=== PATIENT | female | born 1980 | race Caucasian/White ===

== ENCOUNTER 2016-05-14 03:49 | Inpatient (IN) | payer OTHER ==
[2016-05-14] MEDS: DEXTROSE 5%-LACTATED RINGERS 1,000 ML IV SCH ×2 (04:30→08:38)
[2016-05-14 05:26] LABS: BASOPHIL 0.6 % (0-2.0); EOSINOPHIL 1.1 % (0-4.5); MCH 32.8 pg (25.7-33.7); MCHC 34.9 g/dl (32.0-36.0); MEAN CELL VOLUME 94.1 fl (80-96); MEAN PLT VOLUME 9.5 fl (7.5-11.1); NEUTROPHILS 64.9 % (42.8-82.8); PLATELET COUNT 207 K/MM3 (134-434); WHITE BLOOD COUNT 9.7 K/mm3 (4.0-10.0)
[2016-05-14 05:28] VITALS: BMI 29.2
[2016-05-14 05:42] LABS: ACTIVATED PTT 25.7 SECONDS (26.9-34.4)
[2016-05-14 05:44] LABS: CALCIUM 8.4 mg/dL (8.5-10.1); CREATININE 0.6 mg/dL (0.55-1.02)
--- NOTE | 2016-05-14 07:17 | HP ---
Admitting History and Physical - Admission Chief Complaint: Pt comes with labor pains since 4 am History of Present Illness: 40 y/o at 39+ weeks with above. in 2004..gbs neg, hiv neg, hep b neg , rubella immune, o pos. 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: Alzheimer's, CVA, Dementia, Migraine, Multiple Sclerosis, Peripheral Neuropathy, Parkinson's, Seizure, Syncope, TIA, Vertigo, Other Cardiovascular: No: AFIB, Aneurysm, Aortic Insufficiency, Aortic Stenosis, CAD, CHF, Deep Vein Thrombosis, HTN, Hyperlipdemia, OH, Mitral Insufficiency, Mitral Stenosis, Murmur, Pulmonary Hypertension, Other Pulmonary: No: Asthma, Bronchitis, Cancer, COPD, O2 Dependent, Pneumonia, Previously Intubated, Pulmonary Embolus, Pulmonary Fibrosis, Sleep Apnea, Other Gastrointestinal: No: Ascites, Cancer, Constipation, Crohn's Disease, Diverticulitis, Diverticulosis, Esophageal Varices, Gastritis, GERD, GI Bleed, Hemorrhoids, Hiatal Hernia, Inflamatory Bowel Disease, Irritable Bowel Disease, Pancreatitis, Peptic Ulcer Disease, Ulcerative Colitis, Other Hepatobiliary: No: Cirrhosis, Cholelithiasis, Cholecystitis, Choledocholithiasis , Hepatitis A, Hepatitis B, Hepatitis C, Other Renal/: No: Renal Failure, Renal Inusuff, BPH, Cancer, Hematuria, Hemodialysis , Neurogenic Bladder, Renal Calculi, UTI, Other Reproductive: No: Ectopic , Endometriosis, Fibroids, PID, Polycystic Ovary Syndrome, Postmenopausal, Other ...: 3 ...Para: 1 Heme/Onc: No: Anemia, B12 Deficiency, Bleeding Disorder, Cancer, Current Chemotherapy, Current Radiation Therapy, Hemochromatosis, Hypercoaguable State, Myeloproliferative Synd, Sickle Cell Disease, Sickle Cell Trait, Thrombocytopenia, Other Infectious Disease: No: AIDS, C-Diff, Herpes Zoster, HIV, MRSA, STD's, Tuberculosis, VREF, Other Psych: No: Addictions, Anxiety, Bipolar, Depression, Panic, Psychosis, Schizophrenia, Other Musculoskeletal: No: Bursitis, Chronic low back pain, Hemiparesis, Hemiplegia, Osteoarthritis, Paraplegia, Other ENT: No: Allergic Rhinitis, Sinusitis, Other Endocrine: No: [place]'s Disease, [place]'s Disease, Diabetes Insipidus, Diabetes Mellitus, Hyperparathyroidism, Hyperthyroidism, Hypothyroidism, Osteopenia, SIADH, Other Dermatology: No: Basal Cell, Cellulitis, Eczema, Melanoma, Psoriasis, Squamous Cell, Other - Past Surgical History Past Surgical History: No: None, AAA Repair, AICD, Amputation, Appendectomy, Arthrosocopy, AV Fistula/Graft, Bariatric Surgery, Breast Biopsy, Bypass, CABG, Carotid Endarterectomy, Cataract Removal, Cholecystectomy, Colectomy, Colonoscopy, Colostomy, Craniotomy, , Cystectomy, Hernia Repair, Hysterectomy, Ileal Conduit, Ileosotomy, Joint Replacement, Kidney Transplant, Laminectomy, Liver Transplant, Mastectomy, Nephrectomy, Oopherectomy, Orchiectomy, Permanent Pacemaker, Prostatectomy, Splenectomy, Stent, Thoracotomy , TURP, Tonsillectomy, Tubal Ligation, Upper Endoscopy, Valve Replacement, Vasectomy, Vein Stripping/Ligation - Advance Directives Advance Directives: No: Living Will, Health Care Proxy, DNR, Organ Donor, Tissue Donor - Smoking History Smoking history: Never smoked Have you smoked in the past 12 months: No - Alcohol/Substance Use Hx Alcohol Use: No History of Substance Use: denies: None, Cocaine, Heroin, Marijuana, Prescription , Tranquilizers - Social History Usual Living Arrangement: No: Alone, With Spouse, With Parent, With Significant Other, With Child, Assisted Living, Snf, Other Home Medications - Allergies Allergies/Adverse Reactions: Allergies Allergy/AdvReac Type Severity Reaction Status Date / Time No Known Allergies Allergy Verified 05/14/16 06:49 - Home Medications Home Medications: Ambulatory Orders Vitamins (Sjr) - 1 tab PO DAILY 05/14/16 Review of Systems - Review of Systems Constitutional: reports: No Symptoms Eyes: reports: No Symptoms HENT: reports: No Symptoms Neck: reports: No Symptoms Cardiovascular: reports: No Symptoms Respiratory: reports: No Symptoms Gastrointestinal: reports: No Symptoms Genitourinary: reports: No Symptoms Breasts: reports: No Symptoms Reported Musculoskeletal: reports: No Symptoms Integumentary: reports: No Symptoms Neurological: reports: No Symptoms Endocrine: reports: No Symptoms Hematology/Lymphatic: reports: No Symptoms Psychiatric: reports: No Symptoms Physical Examination Vital Signs: Vital Signs Temperature 98.2 F 05/14/16 06:00 Pulse Rate 75 05/14/16 06:00 Respiratory Rate 20 05/14/16 06:00 Blood Pressure 100/54 05/14/16 06:00 O2 Sat by Pulse Oximetry (%) Constitutional: Yes: Well Nourished Eyes: Yes: WNL HENT: Yes: WNL Neck: Yes: WNL Cardiovascular: Yes: WNL Respiratory: Yes: WNL Gastrointestinal: Yes: WNL ...Rectal Exam: Yes: WNL Renal/: Yes: WNL Breast(s): Yes: WNL Musculoskeletal: Yes: WNL Neurological: Yes: WNL (2cm/ fht -minmal variability, no decels) Labs: CBC, BMP 05/14/16 04:50 05/14/16 04:50 Assessment/Plan as above admiit labs
[2016-05-14] MEDS ORDERED: BUTORPHANOL TARTRATE 1 MG/ML VIAL IVPB ONE (07:25)
[2016-05-14] MEDS ORDERED: PROMETHAZINE HCL 25 MG/1 ML VIAL IVPUSH ONE (07:25)
--- NOTE | 2016-05-14 07:25 | PN ---
Progress Note (short form) - Note Progress Note: pt re examined and dnow 3-4 cm, ctx g 3-4 mins
--- NOTE | 2016-05-14 10:46 | PN ---
Progress Note (short form) - Note Progress Note: 36 yrs 39 .3 weeks admitted in early labor by Dr Vargas .GBS neg pt has UC 2-4-5 min mid ot moderate . FHR 140 bpm cat-1 Bloody show noted . P/A 40 weeks , cephalic, pelvic ex 10.20 am : 2-3 cm/60%/CT /Vx-3/-2 Selected Entries 05/14/16 10:00 Temperature 98.2 F Pulse Rate 82 Blood Pressure 105/48 Laboratory Tests 05/14/16 05/14/16 05/14/16 04:50 04:50 04:50 WBC 9.7 Hgb 12.5 Hct 35.9 Plt Count 207 INR 1.00 PTT (Actin FS) 25.7 L Sodium 138 Potassium 3.6 Chloride 104 Carbon Dioxide 21 BUN 8 Random Glucose 150 H RPR Titer Blood Type Antibody Screen 05/14/16 05/14/16 04:50 04:50 WBC Hgb Hct Plt Count INR PTT (Actin FS) Sodium Potassium Chloride Carbon Dioxide BUN Random Glucose RPR Titer Nonreactive Blood Type O POSITIVE Antibody Screen Negative Imp : early labor ( prolonged latent phase labor): Plan ; Pitocin Augmentation pt requests for epidural labor analgesia
[2016-05-14] MEDS ORDERED: OXYTOCIN 15 UNITS/ LR 250 ML 250 ML IVPB SCH (11:00)
--- NOTE | 2016-05-14 12:43 | PN ---
Progress Note, Labor Vaginal Exam #1 Labor Exam Date: 05/14/16 Labor Exam Time: 12:35 Heart Rate (range): 130 Dilatation: 4-5 Effacement (%): 80 Amniotic Membrane Status: Intact Presentation: Vertex/Position Station: -3 (bladder full) Remarks: uc q2-3 min fhr 130-140 cat-1 pt requests for epidural Selected Entries 05/14/16 12:00 Temperature 98.1 F Pulse Rate 82 Blood Pressure 106/52 Vaginal Exam #2 Labor Exam Date: 05/14/16 Labor Exam Time: 02:20 Heart Rate (range): 140 Dilatation: 4-5 Effacement (%): 80 Amniotic Membrane Status: Intact Presentation: Vertex/Position Station: -2 Remarks: uc q 2 min FHR cat-1 epidural was stated at 1.40 pm, , pt still c/o pain , top off given at 2.20 pm Selected Entries 05/14/16 05/14/16 05/14/16 14:00 14:15 14:30 Temperature 97.6 F Pulse Rate 80 95 H 80 Blood Pressure 91/50 119/64 112/68 ct trial of labor Vaginal Exam #3 Labor Exam Date: 05/14/16 Labor Exam Time: 15:25 Heart Rate (range): 140-145 Dilatation: 6-7 Effacement (%): 80 Amniotic Membrane Status: Ruptured (AROM clear) Presentation: Vertex/Position Station: -1 Remarks: fhr cat-2( mild variable decel).. uc q2min epidural was done 2 nd time , still pain relief not satisfactory Vaginal Exam #4 Labor Exam Date: 05/14/16 Labor Exam Time: 03:50 Heart Rate (range): 130 Dilatation: 10 Effacement (%): 100 Amniotic Membrane Status: Ruptured Presentation: Vertex/Position Station: +2 Remarks: pt pushing
[2016-05-14] MEDS: ELECTROLYTE-148 SOLN 1,000 ML IV SCH ×2 (13:00→15:35)
[2016-05-14] MEDS ORDERED: FENTANYL/BUPIVACAINE/NS/PF - PCEA - 50 ML DISP.SYRIN EP SCH (13:15)
[2016-05-14] MEDS: D5W-LR W/ 20 UNITS OXYTOCIN 1,000 ML IV SCH (16:10)
--- NOTE | 2016-05-14 16:23 | PN ---
Delivery - Delivery Vaginal Delivery: No Problems, Spontaneous Type of Anesthesia: Epidural Episiotomy/Laceration: None EBL (cc): 350 Delivery, Single - Stages of Labor Date 1st Stage Initiatied: 05/14/16 Time 1st Stage Initiated: 02:00 Date 2nd Stage Initiated: 05/14/16 Time 2nd Stage Initiated: 15:50 Date of Delivery: 05/14/16 Time of Delivery: 16:01 Date Placenta Delivered: 05/14/16 Time Placenta Delivered: 16:10 Placenta: Yes: Spontaneous, Uterine Exploration - Condition of Easement Man/Lumber Checker Present: No Gender: Female Weight: 6 lb 12 oz Position: Left, OA - 1 Minute Total Score: 8 5 Minutes Total Score: 9 - Feeding Plan Initial Plan: Elected not to breastfeed exclusively throughout hospitalization Remarks - Remarks Remarks: 36 yrs 39.3 weeks iup , gbs neg, admitted by Dr Vargas in early labor . pitocin augmentation was started.. Intrapartum course was uneventfu.
[2016-05-14] MEDS ORDERED: oxyCODONE HCL 5 MG TABLET PO PRN (16:24)
[2016-05-14] MEDS ORDERED: WITCH HAZEL 50% (TUCKS) 40 PAD/JAR PAD TP PRN (16:24)
[2016-05-14] MEDS ORDERED: BENZOCAINE 20% 57 GM BOTTLE TP PRN (16:24)
[2016-05-14] MEDS ORDERED: METHYLERGONOVINE MALEATE 0.2 MG/1 ML AMP IM PRN (16:24)
[2016-05-14] MEDS ORDERED: BENZOCAINE 28 GM HEMORRHOIDAL OINTMENT TP PRN (16:24)
[2016-05-14] MEDS ORDERED: BISACODYL 10 MG SUPP.RECT RC PRN (16:24)
[2016-05-14] MEDS: FERROUS SO4 325 MG TABLET (FP) PO SCH (18:30)
[2016-05-15] MEDS: IBUPROFEN 600 MG TABLET (FP) PO PRN ×3 (02:26→21:17)
[2016-05-15] MEDS: ACETAMINOPHEN 325 MG TABLET (FP) PO PRN ×3 (02:27→21:16)
[2016-05-15 07:33] LABS: BASOPHIL 0.2 % (0-2.0); EOSINOPHIL 0.6 % (0-4.5); MCH 32.6 pg (25.7-33.7); MCHC 34.6 g/dl (32.0-36.0); MEAN CELL VOLUME 94.1 fl (80-96); MEAN PLT VOLUME 9.4 fl (7.5-11.1); NEUTROPHILS 74.1 % (42.8-82.8); PLATELET COUNT 178 K/MM3 (134-434); WHITE BLOOD COUNT 16.8 K/mm3 (4.0-10.0)
--- NOTE | 2016-05-15 07:49 | PN ---
Progress Note (short form) - Note Progress Note: ppd 1 doing well, no c/o CBC, BMP 05/14/16 04:50 Last Vital Signs Temp Pulse Resp BP Pulse Ox 97.4 F L 76 18 98/55 100 05/15/16 06:00 05/15/16 06:00 05/15/16 06:00 05/15/16 06:00 05/14/16 15:50 abdomen soft, no distension, no cva, uterus firm, non tender lochia mild no calf tenderness plan ambulate cbc
[2016-05-15] MEDS: FERROUS SO4 325 MG TABLET (FP) PO SCH ×2 (08:18→17:38)
[2016-05-15] MEDS: PRENATAL VITAMINS W/ FOLIC ACID TABLET (FP) PO SCH (09:43)
[2016-05-15] MEDS ORDERED: DIPHTH,PERTUSS(ACELL),TET 0.5 ML DISP.SYRIN IM ONE (10:00)
[2016-05-15] MEDS: D5W-LR W/ 20 UNITS OXYTOCIN 1,000 ML IV SCH (20:43)
[2016-05-15] MEDS: DEXTROSE 5%-LACTATED RINGERS 1,000 ML IV SCH (20:43)
[2016-05-15] MEDS ORDERED: SENNOSIDES/DOCUSATE COMBO (SENNA PLUS) TABLET (UD) PO PRN (22:00)
[2016-05-16] MEDS: FERROUS SO4 325 MG TABLET (FP) PO SCH (07:24)
[2016-05-16 08:56] VITALS: BP 96/56; PULSE 66; TEMP 97.4
--- NOTE | 2016-05-16 09:18 | DS ---
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 No: Calf Tenderness Edema: No Integumentary: Yes: WNL Neurological: Yes: WNL ...Motor Strength: WNL Psychiatric: Yes: WNL, Alert, Oriented Labs: CBC, BMP 05/15/16 06:45 05/14/16 04:50 Delivery - Delivery Vaginal Delivery: No Problems, Spontaneous Type of Anesthesia: Epidural Episiotomy/Laceration: None EBL (cc): 350 Delivery, Single - Stages of Labor Date 1st Stage Initiatied: 05/14/16 Time 1st Stage Initiated: 02:00 Date 2nd Stage Initiated: 05/14/16 Time 2nd Stage Initiated: 15:50 Date of Delivery: 05/14/16 Time of Delivery: 16:01 Time Placenta Delivered: 16:10 Placenta: Yes: Spontaneous, Uterine Exploration - Condition of Special Educator/Anesthetic Assistant Present: No Infant Gender: Female Weight: 6 lb 12 oz Position: Left, OA Total Hours ROM (Hrs/Mins): 0/45 - 1 Minute Total Score: 8 5 Minutes Total Score: 9 - [place] Feeding Plan Initial Plan: Elected not to breastfeed exclusively throughout hospitalization Remarks - Remarks Remarks: 36 yrs 39.3 weeks iup , gbs neg, admitted by Dr Vargas in early labor . pitocin augmentation was started.. Intra course was uneventful. pp course uneventful Discharge Summary Reason For Visit: LABOR ADMIT Current Active Problems Labor established (Acute) Normal spontaneous vaginal delivery (Acute) with 39 completed weeks gestation (Acute) Condition: Stable - Instructions Diet, Activity, Other Instructions: Post Instructions DIET: Continue good diet high in protein, calcium, and iron rich foods. Drink at least eight (8) glasses of water daily in addition to other fluids. Regular diet MEDICATIONS: Continue vitamins and iron as previously directed. Motrin and Tylenol may be taken for minor discomfort. ACTIVITY: Mild to moderate exercise may be started in two (2) weeks. Take frequent rest periods. Resume normal activity after six (6) week check up. WOUND CARE OF OPERATIVE SITE: Continue use of perineal bottle until vaginal discharge stops. Keep area clean. Shower daily. Keep abdominal wound dry. Report any drainage or redness to physician. Tub baths, tampons and douches are not permitted for [address] Breast feeding & or Bottle feeding BREAST CARE: (For those that are not breast feeding): If engorgement occurs: Wear tight fitting bra. Take Tylenol or Motrin for pain. Apply cold packs (ice in bags to each breast ) FAMILY PLANNING: There are many control alternatives to pursue and they should be discussed at your first office visit. You may resume sexual activity after your six (6) week check up. (Remember, breast feeding is not a contraceptive) NEXT PHYSICIAN APPOINTMENT: Be certain to call for a six (6) week appointment, unless otherwise directed. Call Clinic or got to Emergency Dept if you have any of the following: Heavy vaginal bleeding Painful urination Leg pain Unusual odor noted to vaginal bleeding High fever Red streaking noted on breast Referrals: Eli Wheeler MD [Staff Physician] - Disposition: HOME - Home Medications Comprehensive Discharge Medication List: Ambulatory Orders Acetaminophen [Tylenol .Regular Strength -] 650 mg PO Q3H PRN #0 tablet Ferrous Sulfate [Feosol] 325 mg PO BIDWM ud 05/14/16 Ibuprofen [Motrin -] 200 mg PO Q4H PRN #0 tablet 05/14/16 Vitamins (Sjr) - 1 tab PO DAILY 05/14/16 Vitamins (Sjr) - 1 tab PO DAILY tablet 05/14/16
[2016-05-16] MEDS: PRENATAL VITAMINS W/ FOLIC ACID TABLET (FP) PO SCH (09:39)
== END 2016-05-16 11:50 | disposition home or self-care (01) | DRG 560 ==
LOC: JDEL 03:49 → JLDR 04:40 → J3W 17:59
PROVIDERS: ADMIT Obstetrics & Gynecology; ATTEND Obstetrics & Gynecology
PROC: 10E0XZZ Delivery of Products of Conception, External Approach (ICD-10-PCS; principal; 2016-05-14)
DX: O63.0 Prolonged first stage (of labor) (principal); Z3A.39 39 weeks gestation of pregnancy; Z37.0 Single live birth
CPT/HCPCS: 36415; 59409; 80048; 85025; 85610; 85730; 86593; 86850; 86900; 86901; 90715